=== PATIENT | female | born 1940 | race Caucasian/White ===

== ENCOUNTER 2017-12-16 17:58 | Inpatient (IN) | payer OTHER ==
[~2017-12-16] VITALS: Ht 154.9 cm; Wt 66.3 kg
[2017-12-16 18:54] LABS: BASOPHIL % 0.5 % (0-2); PLATELET COUNT 213 x10^3mcL (130-400); RED CELL DISTRIBUTION WIDTH 13.8 % (11.5-14.5)
[2017-12-16 19:02] LABS: CALCIUM 8.7 mg/dL (8.5-10.1); CARBON DIOXIDE 25.8 mmol/L (21-32); CHLORIDE SERUM 104 mmol/L (98-107); CREATININE SERUM 0.9 mg/dL (0.6-1.0); GLUCOSE SERUM 152 mg/dL (74-106); POTASSIUM SERUM 3.8 mmol/L (3.5-5.1); SODIUM SERUM 138 mmol/L (136-145)
[2017-12-16 19:07] LABS: ALBUMIN 3.7 g/dL (3.4-5.0); ALKALINE PHOSPHATASE 125 U/L (46-116); ALT/SGPT 88 U/L (14-59); AST/SGOT 77 U/L (15-37); BILIRUBIN TOTAL 0.1 mg/dL (0.20-1.00); TOTAL PROTEIN, SERUM 7.3 g/dL (6.4-8.2)
[2017-12-16 20:16] VITALS: BP 179/77
[2017-12-16 20:20] LABS: PHOSPHOROUS 2.8 mg/dL (2.5-4.9)
[2017-12-16 20:25] LABS: FREE T4 1.06 ng/dL (0.76-1.46); FREE THYROXINE INDEX 2.4 ug/dL (1.4-4.5); T4(THYROXINE) 6.7 ug/dL (4.7-13.3)
[2017-12-16 20:26] LABS: T3 TOTAL 0.73 ng/mL
[2017-12-16] MEDS ORDERED: LOPRESSOR1 MG/ML PO (20:48)
[2017-12-16 20:54] LABS: microscopic required? YES; urine erythrocyte TRACE (NEGATIVE)
[2017-12-16 21:05] LABS: AMPHETAMINE QUAL UR NONE DETECTED (NEG <=1000)
[2017-12-16 21:21] VITALS: BP 180/74
[2017-12-16 21:33] VITALS: BP 147/73
[2017-12-16] MEDS ORDERED: ZESTRIL5 MG PO (21:55)
[2017-12-16] MEDS ORDERED: ASPIR 8181 MG PO (21:55)
[2017-12-16] MEDS ORDERED: LATANOPROST2.5 ML OU (21:55)
[2017-12-16] MEDS ORDERED: NIASPAN500 MG PO (22:01)
[2017-12-17 08:15] VITALS: BP 150/72
[2017-12-17 09:52] LABS: BASOPHIL % 0.7 % (0-2); PLATELET COUNT 210 x10^3mcL (130-400); RED CELL DISTRIBUTION WIDTH 13.9 % (11.5-14.5)
[2017-12-17 10:22] LABS: CALCIUM 8.3 mg/dL (8.5-10.1); CARBON DIOXIDE 28.4 mmol/L (21-32); CHLORIDE SERUM 109 mmol/L (98-107); CREATININE SERUM 0.8 mg/dL (0.6-1.0); GLUCOSE SERUM 96 mg/dL (74-106); POTASSIUM SERUM 4.2 mmol/L (3.5-5.1); SODIUM SERUM 145 mmol/L (136-145)
[2017-12-17 12:21] VITALS: BP 118/49
[2017-12-17] MEDS ORDERED: NOR5 PO (13:23)
[2017-12-17 16:22] VITALS: BP 144/60
[2017-12-17 18:05] VITALS: BP 128/69
== END 2017-12-17 19:13 | disposition home health service (06) | DRG 304 ==
LOC: ED 17:58 → DU 19:06
PROVIDERS: Emergency Medicine; Student in an Organized Health Care Education/Training Program
DX: I16.0 Hypertensive urgency (principal); N17.0 Acute kidney failure with tubular necrosis; E72.20 Disorder of urea cycle metabolism, unspecified; E87.2 Acidosis; E11.65 Type 2 diabetes mellitus with hyperglycemia; R55 Syncope and collapse; E83.51 Hypocalcemia; R74.0 Nonspecific elevation of levels of transaminase and lactic acid dehydrogenase [LDH]; R31.29 Other microscopic hematuria; E03.9 Hypothyroidism, unspecified; H40.9 Unspecified glaucoma; Z68.27 Body mass index [BMI] 27.0-27.9, adult; Z79.82 Long term (current) use of aspirin
CPT/HCPCS: 82962; 83880; 84439; J0360; J2405; J7030; J8597; Q0092